=== PATIENT | male | born 1995 | race Two or more races ===

== ENCOUNTER 2020-05-16 13:47 | Emergency (ER) | payer SELFPAY ==
[~2020-05-16] VITALS: Ht 175.3 cm; Wt 90.7 kg
--- NOTE | 2020-05-16 14:15 | NUR ---
ED Nurse Note: Pt ambulated to ED from home d/t L thumb laceration, per pt he has cutting vegetables at home when he accidentally cut himself. Tetanus shot at 20yrs old. Pt is AOx4, calm and cooperative to care, VSS, on RA, afebrile on triage. Placed on bed.
[2020-05-16] MEDS ORDERED: Surgicel 4in x 8in TOPIC ONE (14:45)
--- NOTE | 2020-05-16 14:56 | NUR ---
ED Nurse Note: x-ray at bedside.
[2020-05-16 14:58] VITALS: BP 126/79
[2020-05-16] MEDS ORDERED: AUGMENTIN 875-1 EAC1 ORAL (15:11)
--- NOTE | 2020-05-16 15:11 | Emergency Room Report ---
History of Present Illness General Chief Complaint: Laceration Source: Patient Present Illness HPI 24-year-old male with no signal past medical history here complaining of laceration left thumb that happened prior to arrival. Patient was cutting vegetables and he accidentally cut the tip of his finger. Bleeding noted an avulsion laceration noted. Patient has full range of motion of the affected side. Denies any tingling or numbness. Is neurovascularly intact. Has not taken medication for symptom relief. Is also up-to-date with immunization. 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 COVID-19 Screening: Negative COVID-19 COVID-19 Testing Source: oropharynx Patient History Past Medical History: see triage record Past Surgical History: none Pertinent Family History: none Immunizations: UTD Reviewed Nursing Documentation: PMH: Agreed; PSxH: Agreed Nursing Documentation-PMH Past Medical History: No Stated History Review of Systems All Other Systems: negative except mentioned in HPI Physical Exam Vital Signs Date Time Temp Pulse Resp B/P (MAP) Pulse Ox O2 Delivery O2 Flow Rate FiO2 05/16/20 14:04 97.9 83 20 126/79 (95) 97 Room Air Sp02 EP Interpretation: reviewed, normal General Appearance: no apparent distress, alert, GCS 15, non-toxic Head: normocephalic, atraumatic Eyes: bilateral eye normal inspection, bilateral eye PERRL ENT: normal pharynx Neck: full range of motion, supple Respiratory: no respiratory distress, no retraction, no accessory muscle use Cardiovascular #1: regular rate, rhythm, no edema Cardiovascular #2: 2+ radial (R), 2+ radial (L) Gastrointestinal: no mass Genitourinary: no CVA tenderness Musculoskeletal: back normal, non-tender, other - Left avulsion laceration Neurologic: alert, motor strength/tone normal, oriented x3, sensory intact, responsive, speech normal Psychiatric: judgement/insight normal, memory normal, mood/affect normal, no suicidal/homicidal ideation Skin: laceration - Left thumb avulsion laceration Lymphatic: no adenopathy Procedures Laceration/Wound Repair Laceration/Wound Repair : Consent: Verbal Wound Location: upper extremity - left thumb Wound's Depth, Shape: superficial Wound Length (cm): 1 Wound Explored: clean Betadine Prep?: Yes Wound Repaired With: Dermabond Layer Closure?: Yes Sterile Dressing Applied?: Yes Splint Applied?: Yes Type of Splint Applied: metal Sling Applied?: No Patient Tolerated: Well Complications: None Medical Decision Making PA Attestation All diagnosis and treatment plans were discussed and reviewed by my supervising physician Dr. Noguera Diagnostic Impression: Primary Impression: Finger laceration ER Course 24-year-old male with no signal past medical history here complaining of laceration left thumb that happened prior to arrival. Patient was cutting vegetables and he accidentally cut the tip of his finger. Bleeding noted an avulsion laceration noted. Patient has full range of motion of the affected side. Denies any tingling or numbness. Is neurovascularly intact. Has not taken medication for symptom relief. Is also up-to-date with immunization. Ddx considered but are not limited to : Superficial laceration, deep laceration, tendon involvement with laceration, laceration with foreign body Vital signs: are WNL, pt. is afebrile H&PE are most consistent with: Finger avulsion laceration ORDERS: Finger x-ray, Augmentin ED INTERVENTIONS: Wound clean, closure, splint applied DISCHARGE: At this time pt. is stable for d/c to home. Will provide printed patient care instructions, and any necessary prescriptions. Care plan and follow up instructions have been discussed with the patient prior to discharge. Take medication as ordered, follow primary care provider, if worsening symptoms return to the emergency Other X-Ray Diagnostic Results Other X-Ray Diagnostic Results : X-Ray ordered: Finger # of Views/Limited Vs Complete: 3 View Indication: Pain EP Interpretation: Yes PA Xray: Interpretation reviewed, by supervising MD, and agrees with findings. Interpretation: no dislocation, no soft tissue swelling, no fractures Impression: No acute disease Electronically Signed by: Tre Glasgow PA-C Last Vital Signs Date Time Temp Pulse Resp B/P (MAP) Pulse Ox O2 Delivery O2 Flow Rate FiO2 05/16/20 14:58 97.9 20 126/79 97 Room Air 05/16/20 14:04 83 Disposition: HOME, SELF-CARE Condition: Stable Scripts Amoxicillin/Potassium Clav 875-125* (AUGMENTIN 875-125 TABLET*) 1 Each Tablet 1 TAB ORAL TWICE A DAY for 7 Days, #14 TAB Prov: Tre Rosario 05/16/20 Referrals: NOT CHOSEN IPA/MD,REFERRING (PCP) Patient Instructions: Laceration Care, Adult Additional Instructions: Take medication as directed, follow-up with your primary care provider, proper wound care needed, if worsening symptoms return to the emergency room Tre Rosario May 16, 2020 15:11
[2020-05-16 15:40] VITALS: BP 124/76
--- NOTE | 2020-05-16 15:40 | NUR ---
ER DISCHARGE NOTE: Patient is cleared to be discharged per ERPA, pt is aox4, on room air, with stable vital signs. pt was given dc and prescription instructions, pt was able to verbalize understanding, pt id band removed. pt is able to ambulate with steady gait. pt took all belongings.
--- NOTE | 2020-05-16 16:38 | Diagnostic Imaging Report ---
Indication: Trauma, injury, laceration Technique: 3 views of the left Comparison: none Findings: There is a soft tissue defect in the distal thumb, relatively related to stated clinical history of laceration. No radiopaque foreign body demonstrated. No acute fracture. No dislocation. Joint spaces are preserved Impression: No acute bony trauma Evidence of soft tissue injury
== END 2020-05-16 15:40 | disposition home or self-care (01) ==
LOC: EMR 14:27
DX: S61.012A Laceration without foreign body of left thumb without damage to nail, initial encounter (principal); W26.0XXA Contact with knife, initial encounter; Y93.G3 Activity, cooking and baking; Y92.010 Kitchen of single-family (private) house as the place of occurrence of the external cause
CPT/HCPCS: 99283